=== PATIENT | male | born 1955 | race Caucasian/White ===

== ENCOUNTER 2016-10-08 12:21 | Emergency (ER) | payer MEDICAID ==
[2016-10-08] MEDS ORDERED: Sodium Chloride 0.9% 10 ML Syringe FLUSH PRN (12:56)
--- NOTE | 2016-10-08 13:18 | EDM.PDOC ---
ED HPI GENERAL MEDICAL PROBLEM - General Chief Complaint: Respiratory Problem Stated Complaint: RIB PAIN Time Seen by Provider: 10/08/16 12:47 Source of Information: Reports: Patient, Old Records (recent clinic visit and xray report) History Limitations: Reports: No Limitations - History of Present Illness INITIAL COMMENTS - FREE TEXT/NARRATIVE: 61-year-old male presents for evaluation and treatment of pain to the left ribs. Patient reports that he fell on Monday morning. States he was walking with his dog and he tripped and fell. He did not head nor lose consciousness. Reports pain initially in the left lateral, inferior ribs. He states that he went to the clinic on 10-03-16 and x-rays of the chest and left ribs are performed. No acute abnormalities. Healing rib fractures, from December, were present. Patient reports Monday the pain has moved more superiorly just underneath the left breast. He denies any syncope since the incident. Denies any nausea, vomiting or any headaches. He states he did not hit his head. He reports some lightheadedness. He states that the pain is worse with palpation. He states that it is hard to breathe due to the pain. He reports when he does take a deep breath his muscles seem to tighten. Patient was prescribed tramadol on Monday for the pain. He states that he does not feel as providing adequate pain relief. Patient is a current everyday smoker. Location: Reports: Chest Worsens with: Reports: Breathing, Other (palpation), Movement Left Pain Score (Numeric/FACES): 6 - Related Data Allergies Allergy/AdvReac Type Severity Reaction Status Date / Time No Known Allergies Allergy Verified 10/08/16 12:38 Home Meds: Home Meds Spironolactone [Aldactone] 100 mg PO BID 01/18/16 [History] Acetaminophen/oxyCODONE [Percocet 325-5 MG] 1 tab PO Q6H PRN #20 tablet [Rx] Furosemide [Furosemide] 40 mg PO DAILY 10/08/16 [History] amLODIPine [Norvasc] 10 mg PO DAILY 10/08/16 [History] Past Medical History - Past Health History Medical/Surgical History: Denies Medical/Surgical History Gastrointestinal History: Reports: Cirrhosis, GERD Musculoskeletal History: Reports: Other (See Below) Other Musculoskeletal History: broken ribs Social & Family History - Family History Family Medical History: Noncontributory - Tobacco Use Smoking Status *Q: Current Every Day Smoker Years of Tobacco use: 30 Packs/Tins Daily: 0.7 - Caffeine Use Caffeine Use: Reports: Coffee - Alcohol Use Days Per Week of Alcohol Use: 7 Number of Drinks Per Day: 5 Total Drinks Per Week: 35 - Recreational Drug Use Recreational Drug Use: No ED ROS GENERAL - Review of Systems Review Of Systems: See Below Respiratory: Reports: Shortness of Breath Cardiovascular: Reports: Chest Pain, Lightheadedness GI/Abdominal: Denies: Abdominal Pain, Nausea, Vomiting Skin: Reports: Bruising (elbows, hips and ribs) Neurological: Denies: Headache, Syncope ED EXAM, GENERAL - Physical Exam Exam: See Below Exam Limited By: No Limitations General Appearance: Alert, WD/WN, No Apparent Distress Eye Exam: Bilateral Eye: EOMI, PERRL Ears: Normal External Exam Nose: Normal Inspection Throat/Mouth: Normal Inspection, Normal Lips, Normal Voice, No Airway Compromise Head: Atraumatic, Normocephalic Neck: Normal Inspection, Supple, Non-Tender, Full Range of Motion Respiratory/Chest: No Respiratory Distress, Lungs Clear, Normal Breath Sounds, Splinting, Other (tenderness to palpation to ribs 5 and 6 in the anteriorlateral area) Cardiovascular: Normal Peripheral Pulses, Regular Rate, Rhythm, No Murmur GI/Abdominal: Normal Bowel Sounds, Soft, Non-Tender, Other (No LUQ tenderness) Neurological: Alert, Oriented, Normal Cognition Psychiatric: Normal Affect, Normal Mood Skin Exam: Warm, Dry, Normal Color. No: Ecchymosis (no ecchymosis to the chest appreiated ) EKG INTERPRETATION EKG Date: 10/08/16 Time: 14:15 Rhythm: NSR Rate (Beats/Min): 81 Reubens: Normal P-Wave: Present QRS: Normal ST-T: Normal QT: Normal EKG Interpretation Comments: NSR at 81 bpm. Q waves in II, III and AVF - old inferior wall OH. Reviewed by myself and Dr. Bajwa. Course - Vital Signs Last Recorded V/S: Last Vital Signs Temp 36.2 C 10/08/16 12:34 Pulse 99 10/08/16 12:34 Resp 20 10/08/16 12:34 BP 128/78 10/08/16 12:34 Pulse Ox 100 08/19/17 12:34 - Orders/Labs/Meds Labs: Laboratory Tests 10/08/16 10/08/16 10/08/16 Range/Units 13:08 13:08 13:08 WBC 13.24 H (4.23-9.07) K/mm3 RBC 4.99 (4.63-6.08) M/mm3 Hgb 15.9 (13.7-17.5) gm/L Hct 44.8 (40.1-51.0) % MCV 89.8 (79.0-92.2) fl MCH 31.9 (25.7-32.2) pg MCHC 35.5 (32.2-35.5) g/dl RDW Std Deviation 43.4 (35.1-43.9) fL Plt Count 220 (163-337) K/mm3 MPV 9.0 L (9.4-12.3) fl Neut % (Auto) 69.6 H (34.0-67.9) % Lymph % (Auto) 16.2 L (21.8-53.1) % Montgomery % (Auto) 11.9 (5.3-12.2) % Eos % (Auto) 1.4 (0.8-7.0) Baso % (Auto) 0.3 (0.1-1.2) % Neut # (Auto) 9.21 H (1.78-5.38) K/mm3 Lymph # (Auto) 2.15 (1.32-3.57) K/mm3 Montgomery # (Auto) 1.57 H (0.30-0.82) K/mm3 Eos # (Auto) 0.19 (0.04-0.54) K/mm3 Baso # (Auto) 0.04 (0.01-0.08) K/mm3 Manual Slide Review Normal smear PT (8.0-13.0) SECONDS INR APTT (22-36) SECONDS Sodium 131 L (136-145) mEq/L Potassium 5.0 (3.5-5.1) mEq/L Chloride 95 L (98-107) mEq/L Carbon Dioxide 25 (21-32) mEq/L Anion Gap 16.0 H (5-15) BUN 22 H (7-18) mg/dL Creatinine 1.7 H (0.7-1.3) mg/dL Est Cr Clr Drug Dosing 46.52 mL/min Estimated GFR (MDRD) 41 (>60) mL/min BUN/Creatinine Ratio 12.9 L (14-18) Glucose 125 H (80-115) mg/dL Calcium 10.3 H (8.5-10.1) mg/dL Total Bilirubin 0.5 (0.2-1.0) mg/dL AST 22 (15-37) U/L ALT 19 (16-63) U/L Alkaline Phosphatase 91 (46-116) U/L CK-MB (CK-2) 0.6 (0-3.6) ng/ml Troponin I 0.041 (0.00-0.056) ng/mL Total Protein 9.1 H (6.4-8.2) g/dl Albumin 4.5 (3.4-5.0) g/dl Globulin 4.6 gm/dL Albumin/Globulin Ratio 1.0 (1-2) / Range/Units 13:08 WBC (4.23-9.07) K/mm3 RBC (4.63-6.08) M/mm3 Hgb (13.7-17.5) gm/L Hct (40.1-51.0) % MCV (79.0-92.2) fl MCH (25.7-32.2) pg MCHC (32.2-35.5) g/dl RDW Std Deviation (35.1-43.9) fL Plt Count (163-337) K/mm3 MPV (9.4-12.3) fl Neut % (Auto) (34.0-67.9) % Lymph % (Auto) (21.8-53.1) % Montgomery % (Auto) (5.3-12.2) % Eos % (Auto) (0.8-7.0) Baso % (Auto) (0.1-1.2) % Neut # (Auto) (1.78-5.38) K/mm3 Lymph # (Auto) (1.32-3.57) K/mm3 Montgomery # (Auto) (0.30-0.82) K/mm3 Eos # (Auto) (0.04-0.54) K/mm3 Baso # (Auto) (0.01-0.08) K/mm3 Manual Slide Review PT 11.2 (8.0-13.0) SECONDS INR 1.03 APTT 30 (22-36) SECONDS Sodium (136-145) mEq/L Potassium (3.5-5.1) mEq/L Chloride (98-107) mEq/L Carbon Dioxide (21-32) mEq/L Anion Gap (5-15) BUN (7-18) mg/dL Creatinine (0.7-1.3) mg/dL Est Cr Clr Drug Dosing mL/min Estimated GFR (MDRD) (>60) mL/min BUN/Creatinine Ratio (14-18) Glucose (80-115) mg/dL Calcium (8.5-10.1) mg/dL Total Bilirubin (0.2-1.0) mg/dL AST (15-37) U/L ALT (16-63) U/L Alkaline Phosphatase (46-116) U/L CK-MB (CK-2) (0-3.6) ng/ml Troponin I (0.00-0.056) ng/mL Total Protein (6.4-8.2) g/dl Albumin (3.4-5.0) g/dl Globulin gm/dL Albumin/Globulin Ratio (1-2) Meds: Medications Discontinued Medications Generic Name Dose Route Start Last Admin Trade Name Freq PRN Reason Stop Dose Admin Iopamidol 80 ml 10/08/16 13:41 10/08/16 14:00 Isovue-300 (61%) IVPUSH 10/08/16 13:42 80 ml ONETIME ONE Administration Sodium Chloride 10 ml 10/08/16 12:56 10/08/16 14:24 Saline Flush FLUSH 10 ml ASDIRECTED PRN Administration Keep Vein Open - Radiology Interpretation Free Text/Narrative:: CT of the chest with IV contrast impression per [facility]: No acute process. Cirrhotic liver. - Re-Assessments/Exams Free Text/Narrative Re-Assessment/Exam: 10/08/16 12:55 Plan is to obtain a CT of the chest to rule out any new rib fractures or pneumos that were not appreciated on chest x-ray. Will also obtain an EKG and lab work. Offered medication for pain. Patient reports that he drove himself here and he would like to drive home. He declined narcotic pain medication at this time. 10/08/16 15:19 I reviewed the chest CT, ekg and labs with the patient. Informed of the hyponatremia. Reports he has had this before. Encouraged fluids such as powerade or gatorade and increasing salt consumption. Will discharge home, discharge instructions as documented. Departure - Departure Time of Disposition: 15:20 Disposition: Home, Self-Care 01 Condition: Fair Clinical Impression: Bruised rib Qualifiers: Encounter type: initial encounter Laterality: left Qualified Code(s): S20.212A - Contusion of left front wall of thorax, initial encounter - Discharge Information Prescriptions: Acetaminophen/oxyCODONE [Percocet 325-5 MG] 1 tab PO Q6H PRN #20 tablet PRN Reason: Pain Instructions: Rib Contusion Referrals: Elif Kramer, [employer] [facility]CHNICIAN [Primary Care Provider] - Forms: ED Department Discharge Additional Instructions: Take the Percocet as prescribed. 1-2 tabs every 4-6 hours as needed for pain. Do not drive or operate machinery within 12 hours of taking the Percocet. Percocet can be habit-forming, I recommend you take as few as needed to control your pain. May use heat or ice to sore area for additional symptom relief. Follow-up with your primary care provider this week for recheck of your symptoms. Please return to the ER if your symptoms change or worsen.
[2016-10-08] MEDS ORDERED: Iopamidol 612 MG/ML 100 ML Bottle IVPUSH ONE (13:41)
[2016-10-08 13:54] VITALS: BP 128/78
--- NOTE | 2016-10-10 08:27 | CT ---
CT chest Technique: Multiple axial sections were obtained from above the lung apices inferiorly through the lung bases. Intravenous contrast was utilized. Comparison: Previous chest x-ray of 10/03/16. Previous abdominal CT of 01/18/16. Findings: Slight nodular contour of the liver is seen. Liver also appears slightly smaller than on prior CT exam. Findings suggest the possibility of cirrhosis. Other portions of the upper abdominal structures are within normal limits. No pericardial thickening is seen. Coronary artery calcification is noted. Mediastinum and hilar regions show no adenopathy or mass. No axillary adenopathy is identified. Large calcified granuloma noted within the right mid lung measuring approximately 1.7 cm. Smaller calcified granuloma seen adjacent to the larger finding measuring about 4 mm. Mild emphysematous changes are present. Lungs otherwise are clear. Old partially healed left tenth rib fracture is noted. Fracture identified within the sixth rib. Uncertain if this is old or acute. Impression: 1. Possible cirrhotic liver. 2. Two calcified granulomas within the right mid chest. 3. Coronary artery calcification. Other incidental findings. 4. Old partially healed rib fracture within the left tenth rib. Nondisplaced sixth rib fracture, uncertain if this is acute or old. 5. No acute abnormality identified is otherwise seen on CT study of the chest. Diagnostic code #3 Mostly agree with preliminary report issued by [facility], with additional note of sixth rib fracture as noted above ([facility] preliminary report dictated on 10/08/16, 3:16 PM Central Time
== END 2016-10-08 15:35 | disposition home or self-care (01) ==
LOC: JD.ED 12:21
DX: S20.212A Contusion of left front wall of thorax, initial encounter (principal); K21.9 Gastro-esophageal reflux disease without esophagitis; F17.210 Nicotine dependence, cigarettes, uncomplicated; Z79.899 Other long term (current) drug therapy; W01.0XXA Fall on same level from slipping, tripping and stumbling without subsequent striking against object, initial encounter
CPT/HCPCS: 36415; 71260; 80053; 82553; 84484; 85025; 85610; 85730; 93005; 99284; J7050; Q9967; 99283

== ENCOUNTER 2020-09-07 12:22 | Emergency (ER) | payer MEDICAID, MEDICARE ==
[2020-09-07] MEDS ORDERED: LORazepam 2 MG/ML SDV IVPUSH ONE ×2 (12:31→14:01)
[2020-09-07] MEDS ORDERED: Thiamine 200 MG/2 ML MDV IVPUSH ONE (12:31)
--- NOTE | 2020-09-07 12:40 | EDM.PDOCBH ---
<Mo Snell - Last Filed: 09/07/20 22:06> ED HPI GENERAL MEDICAL PROBLEM - General Chief Complaint: Drug or Alcohol Abuse Stated Complaint: [facility] Time Seen by Provider: 09/07/20 12:30 - Related Data Allergies Allergy/AdvReac Type Severity Reaction Status Date / Time No Known Allergies Allergy Verified 09/07/20 12:29 Home Meds: Home Meds Spironolactone [Aldactone] 100 mg PO BID 01/18/16 [History] Acetaminophen/oxyCODONE [Percocet 325-5 MG] 1 tab PO Q6H PRN #20 tablet 10/08/16 [Rx] Furosemide 40 mg PO DAILY 10/08/16 [History] amLODIPine [Norvasc] 10 mg PO DAILY 10/08/16 [History] COURSE, BEHAVIORAL HEALTH COMP - Course Medical Clearance: 09/07/20 22:06 Notified that the patient is now up, ambulating, and sober enough to go home. His girlfriend is on her way to collect him. Departure - Departure Time of Disposition: 22:06 Disposition: Home, Self-Care 01 Condition: Good Clinical Impression: Alcohol intoxication - Discharge Information *PRESCRIPTION DRUG MONITORING PROGRAM REVIEWED*: Not Applicable *COPY OF PRESCRIPTION DRUG MONITORING REPORT IN PATIENT EFRAIN: Not Applicable Instructions: Alcohol Intoxication, [id number] Referrals: PCP,None [Primary Care Provider] - Forms: ED Department Discharge Additional Instructions: You were brought to the emergency room after being too weak and uncoordinated to walk, in the setting of chronically ingesting alcohol. Work-up in the ER included numerous blood tests, which found your alcohol level to be significantly elevated at 0.35, and your potassium to be low at 2.8. You were given IV potassium, along with IV fluid in the ER. We strongly recommended that you seek help in order to stop drinking alcohol, by presenting to [facility]: [address] [place] [phone] If any other problems, please do not hesitate to return to the ER. <Chao Vasquez - Last Filed: 09/08/20 07:20> ED HPI GENERAL MEDICAL PROBLEM - General Source of Information: Reports: Patient History Limitations: Reports: No Limitations - History of Present Illness INITIAL COMMENTS - FREE TEXT/NARRATIVE: 65-year-old male presents to the ED per [facility]. The history suggest that he drinks 5 to 6 glasses of black velvet whiskey on a daily basis throughout the day. There is no indication as to how large the glasses are. He states he has been doing this for many years. For the last 3 days he has been unable to sleep. This morning when he tried to get up he found that his balance was off and therefore he lowered himself to the floor and crawled to the bathroom on his hands and knees. Once he got there he was completely out of breath and so weak that he could not get up. He therefore summoned help and the paramedics came. Patient admits to 2 drinks within the last 12 hours. He denies any nausea or vomiting. He denies any hematemesis. It is unclear if he has a confirmed diagnosis of cirrhosis of the liver his current med list suggest that he has ascites as he is on Aldactone and Lasix. He states his stools are usually on the looser side without blood. He had a good meal yesterday. 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 He is alert oriented and answers all questions appropriately. He is minimally dysarthric. 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 He denies any recent falls.) Duration: Hour(s):, Constant Location: Reports: Generalized (Generalized weakness lysed weakness and feeling of being off balance.) Quality: Reports: Other (Generalized weakness with chronic problems with being off balance felt to be due to cerebellar ataxia.) Severity: Moderate Improves with: Reports: None Worsens with: Reports: None Context: Reports: Other (Take alcoholic.). Denies: Activity, Exercise, Lifting, Sick Contact, Trauma Associated Symptoms: Reports: Cough, cough w sputum (Walkers cough. Smokes a little over a pack per day.), Loss of Appetite, Malaise, Shortness of Breath, Weakness. Denies: Confusion, Chest Pain, Diaphoresis ( Brown sputum.), Fever/Chills, Headaches, Nausea/Vomiting, Rash, Seizure, Syncope (Eats solid food rarely.) Treatments [employer]PECTOR: Reports: Other (see below) (Neurolysed weakness denies taking any medications other than prescribed Aldactone and furosemide for cirrhosis.) Past Medical History - Past Health History Medical/Surgical History: Denies Medical/Surgical History Gastrointestinal History: Reports: Cirrhosis, GERD Musculoskeletal History: Reports: Other (See Below) Other Musculoskeletal History: broken ribs Social & Family History - Family History Family Medical History: No Pertinent Family History - Tobacco Use Tobacco Use Status *Q: Current Every Day Tobacco User Tobacco Use Within Last Twelve Months: Cigarettes Years of Tobacco use: 50 Packs/Tins Daily: 1 - Caffeine Use Caffeine Use: Reports: Coffee - Recreational Drug Use Recreational Drug Use: No ED ROS GENERAL - Review of Systems Review Of Systems: See Below (Clearly lobar pack per day) Constitutional: Reports: Malaise, Weakness, Fatigue, Decreased Appetite, Weight Loss. Denies: Fever, Chills HEENT: Reports: Glasses Respiratory: Reports: Shortness of Breath (Reading only.), Wheezing, Cough, Sputum (Worse in the mornings due to smoking.). Denies: Pleuritic Chest Pain, Hemoptysis ( Brown usually in color) Cardiovascular: Reports: Dyspnea on Exertion. Denies: Chest Pain, Blood Pressure Problem, Claudication, Edema, Lightheadedness, Orthopnea Endocrine: Reports: Fatigue GI/Abdominal: Reports: Diarrhea (Tend to be on the looser side and semiformed), Decreased Appetite (And eat regularly. Maybe once a day or less.) : Reports: Frequency, Other Musculoskeletal: Reports: Neck Pain (Teary at x2 or 3.), Shoulder Pain, Back Pain, Joint Pain Skin: Reports: Bruising (She said he bruises a little easier than normal.) Neurological: Reports: Dizziness, Difficulty Walking (Neurolysed weakness), Weakness, Gait Disturbance (Chronic but getting worse.). Denies: Confusion, Headache, Numbness (And when he gets up in the morning.), Pre-Existing Deficit, Syncope, Tingling, Tremors, Trouble Speaking ( due to cerebellar ataxia.), Change in Speech Psychiatric: Reports: Other (Chronic alcoholism.). Denies: Agitation Hematologic/Lymphatic: Reports: Easy Bruising Immunologic: Reports: No Symptoms ED EXAM, BEHAVIORAL HEALTH - Physical Exam Exam: See Below Exam Limited By: Intoxication General Appearance: Alert, Anxious, Mild Distress, Other (Breath smells strongly of alcohol. Vital signs show temperature of 36.4. Heart rate 100 and sinus respiratory this 20 with O2 sats of 95% room air. BP 134/89.) Eye Exam: Bilateral Eye: Normal Inspection (Mild scleral icterus. No blepharal pallor.), Nystagmus (Sustained nystagmus on lateral gaze bilaterally.), PERRL (No gaze palsy) Throat/Mouth: Other (Tongue is very dry and coated.). No: Normal Oropharynx Head: Atraumatic, Normocephalic, Other (No outward signs of any head or facial trauma.) Neck: Limited Range of Motion, Tender Lateral (Worse than normal.) Respiratory/Chest: Chest Non-Tender, Decreased Breath Sounds (Decreased breath sounds to the lower 20% lung lainez bilaterally.), Rhonchi (Expiratory wheezes), Wheezing. No: Lungs Clear, Normal Breath Sounds, Rales ( scattered rhonchi upper lungs.) Cardiovascular: Regular Rate, Rhythm, No Edema, No Gallop, No Murmur, No Rub. No: Normal Peripheral Pulses GI/Abdominal: Normal Bowel Sounds, Soft, No Distention, No Abnormal Bruit, No Mass, Hepatomegaly, Splenomegaly (Liver is palpable 2 fingerbreadths below the right costal margin. I believe I can feel the tip of his spleen as well left lateral), Other (No evidence of ascites clinically.). No: Distended ( costal margin.) Back Exam: Normal Inspection, Full Range of Motion. No: CVA Tenderness (L), CVA Tenderness (R) Extremities: Normal Inspection, Normal Range of Motion, Non-Tender, No Pedal Edema, Other (Erythema on either knee indicating he did not crawl for very far.) Neurological: Alert, Normal Mood/Affect, CN II-XII Intact, Normal Cognition, Oriented x 3. No: Normal Reflexes Psychiatric: Alert, Normal Affect, Normal Cognition, Normal Mood, Oriented Skin Exam: Warm, Dry, Intact, Normal color, No rash COURSE, BEHAVIORAL HEALTH COMP - Course Vital Signs: Last Vital Signs Temp 36.4 C 09/07/20 12:24 Pulse 92 09/07/20 22:00 Resp 20 09/07/20 22:00 BP 159/94 H 09/07/20 22:00 Pulse Ox 94 L 09/07/20 22:00 Orders, Labs, Meds: Laboratory Tests 09/07/20 09/07/20 09/07/20 Range/Units 12:46 12:46 12:46 WBC 3.17 L (4.23-9.07) K/mm3 RBC 3.59 L (4.63-6.08) M/mm3 Hgb 13.2 L D (13.7-17.5) gm/dl Hct 37.3 L (40.1-51.0) % MCV 103.9 H D (79.0-92.2) fl MCH 36.8 H (25.7-32.2) pg MCHC 35.4 (32.2-35.5) g/dl RDW Std Deviation 51.9 H (35.1-43.9) fL Plt Count 163 (163-337) K/mm3 MPV 8.6 L (9.4-12.3) fl Neut % (Auto) 50.8 (34.0-67.9) % Lymph % (Auto) 29.0 (21.8-53.1) % Adair % (Auto) 17.0 H (5.3-12.2) % Eos % (Auto) 1.6 (0.8-7.0) Baso % (Auto) 1.3 H (0.1-1.2) % Neut # (Auto) 1.61 L (1.78-5.38) K/mm3 Lymph # (Auto) 0.92 L (1.32-3.57) K/mm3 Adair # (Auto) 0.54 (0.30-0.82) K/mm3 Eos # (Auto) 0.05 (0.04-0.54) K/mm3 Baso # (Auto) 0.04 (0.01-0.08) K/mm3 Manual Slide Review Not Reportable PT 11.5 (9.7-12.0) SECONDS INR 1.08 APTT 31.3 (21.7-31.4) SECONDS Sodium 137 (136-145) mEq/L Potassium 2.8 L D (3.5-5.1) mEq/L Chloride 96 L (98-107) mEq/L Carbon Dioxide 30 (21-32) mEq/L Anion Gap 13.8 (5-15) BUN 5 L (7-18) mg/dL Creatinine 0.9 (0.7-1.3) mg/dL Est Cr Clr Drug Dosing 72.52 mL/min Estimated GFR (MDRD) > 60 (>60) mL/min BUN/Creatinine Ratio 5.6 L (14-18) Glucose 93 (70-99) mg/dL Serum Osmolality 370 H (280-300) mosm/kg Calcium 8.7 D (8.5-10.1) mg/dL Magnesium 1.6 L (1.8-2.4) mg/dL Total Bilirubin 0.7 (0.2-1.0) mg/dL GGT 1214 H (15-85) U/L AST 171 H (15-37) U/L ALT 52 (16-63) U/L Alkaline Phosphatase 110 (46-116) U/L Troponin I 0.022 (0.00-0.056) ng/mL NT-Pro-B Natriuret Pep (0-125) pg/mL Total Protein 8.0 (6.4-8.2) g/dl Albumin 3.7 (3.4-5.0) g/dl Globulin 4.3 gm/dL Albumin/Globulin Ratio 0.9 L (1-2) Lipase 131 (73-393) U/L Ethyl Alcohol 0.35 (0.00) gm% 09/07/20 Range/Units 12:46 WBC (4.23-9.07) K/mm3 RBC (4.63-6.08) M/mm3 Hgb (13.7-17.5) gm/dl Hct (40.1-51.0) % MCV (79.0-92.2) fl MCH (25.7-32.2) pg MCHC (32.2-35.5) g/dl RDW Std Deviation (35.1-43.9) fL Plt Count (163-337) K/mm3 MPV (9.4-12.3) fl Neut % (Auto) (34.0-67.9) % Lymph % (Auto) (21.8-53.1) % Adair % (Auto) (5.3-12.2) % Eos % (Auto) (0.8-7.0) Baso % (Auto) (0.1-1.2) % Neut # (Auto) (1.78-5.38) K/mm3 Lymph # (Auto) (1.32-3.57) K/mm3 Adair # (Auto) (0.30-0.82) K/mm3 Eos # (Auto) (0.04-0.54) K/mm3 Baso # (Auto) (0.01-0.08) K/mm3 Manual Slide Review PT (9.7-12.0) SECONDS INR APTT (21.7-31.4) SECONDS Sodium (136-145) mEq/L Potassium (3.5-5.1) mEq/L Chloride (98-107) mEq/L Carbon Dioxide (21-32) mEq/L Anion Gap (5-15) BUN (7-18) mg/dL Creatinine (0.7-1.3) mg/dL Est Cr Clr Drug Dosing mL/min Estimated GFR (MDRD) (>60) mL/min BUN/Creatinine Ratio (14-18) Glucose (70-99) mg/dL Serum Osmolality (280-300) mosm/kg Calcium (8.5-10.1) mg/dL Magnesium (1.8-2.4) mg/dL Total Bilirubin (0.2-1.0) mg/dL GGT (15-85) U/L AST (15-37) U/L ALT (16-63) U/L Alkaline Phosphatase (46-116) U/L Troponin I (0.00-0.056) ng/mL NT-Pro-B Natriuret Pep 301 H (0-125) pg/mL Total Protein (6.4-8.2) g/dl Albumin (3.4-5.0) g/dl Globulin gm/dL Albumin/Globulin Ratio (1-2) Lipase (73-393) U/L Ethyl Alcohol (0.00) gm% Medications Discontinued Medications Generic Name Dose Route Start Last Admin Trade Name Freq PRN Reason Stop Dose Admin Haloperidol Lactate 2.5 mg 09/07/20 14:01 09/07/20 14:09 Haloperidol Lactate 5 Mg/Ml Sdv IVPUSH 09/07/20 14:02 2.5 mg ONETIME ONE Administration Dextrose/Lactated Ringer's 1,000 mls @ 250 mls/hr 09/07/20 12:45 09/07/20 12:43 Dextrose 5%-Lactated Ringers IV 250 mls/hr ASDIRECTED RONNI Administration Potassium Chloride 10 meq/ 100 mls @ 100 mls/hr 09/07/20 14:15 09/07/20 18:20 Premix IV 09/07/20 18:14 100 mls/hr Q1H RONNI Administration Dextrose/Sodium Chloride 1,000 mls @ 200 mls/hr 09/07/20 17:15 09/07/20 17:15 Dextrose 5%-1/2 Ns IV 200 mls/hr ASDIRECTED RONNI Administration Lorazepam 1 mg 09/07/20 12:31 09/07/20 12:43 Lorazepam 2 Mg/Ml Sdv IVPUSH 09/07/20 12:32 1 mg ONETIME ONE Administration Lorazepam 1 mg 09/07/20 14:01 09/07/20 14:09 Lorazepam 2 Mg/Ml Sdv IVPUSH 09/07/20 14:02 1 mg ONETIME ONE Administration Thiamine HCl 100 mg 09/07/20 12:31 09/07/20 12:44 Thiamine 200 Mg/2 Ml Mdv IVPUSH 09/07/20 12:32 100 mg ONETIME ONE Administration Re-Assessment/Re-Exam: 65-year-old male arrives in the ED per [facility] after he summoned them. When he got out of bed this morning he found he was so offkilter and dizzy but he did not walk. He lowered himself to the floor and crawled to the bathroom on his hands and knees. However once he got there he was out of breath and very weak and lightheaded and could not get himself up. He therefore summoned the ambulance. Patient has a history of chronic alcoholism with use of estimated 500 mils of black velvet whiskey on a daily basis. He claims he takes 5-6 drinks daily. He smokes a pack to pack and half cigarettes of daily. He arrives in the ED intoxicated. He has no obvious trauma or injuries. He states that he is not slept for the last 3 nights. Plan IV D5 Ringer's lactate at 250 mils per hour. Given thiamine 100 mg IV with Ativan 1 mg IV. Routine labs to be performed including blood alcohol level. Clinically he has cirrhosis of the liver. Re-Assessment/Re-Exam Date: 09/07/20 (!4:00 patient continues to try and crawl out of bed and he cannot walk and fall risk is extremely high. He has received 1 mg of Ativan with no effect. We will repeat Ativan 1 mg IV with Haldol 2.5 mg IV for his safety to stay in bed until blood alcohol level comes down.) Re-Assessment/Re-Exam Time: 14:05 (Total white count is low at 3.17 combined with chronic alcoholism. The differential shows 58.8% neutrophils and 29% lymphocytes. Hemoglobin is 13.2 with hematocrit of 37.3. MCV is 103.9 again combined with chronic alcohol use. Platelet count is low normal at 163,000. PT is 11.5 with an INR of 1.08 and a PTT of 31.3. Sodium is 137 with potassium of 2.8. Chloride is 96 with a bicarb of 30. Anion gap is 13.8. BUN is 5 with a creatinine of 0.9. GFR is greater than 60. Glucose is 93. Serum osmolality is pending. Calcium is 8.7 magnesium is slightly low at 1.6. Bilirubin is 0.7 GGT elevated at 1214 AST elevated 171 and ALT of 52. Alkaline phosphatase is 110. The elevated GGT appears to be secondary to cirrhosis of the liver. Troponin I is 0.022. Total protein 8.0 with an albumin fraction of 3.7. Lipase is 131. Blood alcohol is currently 0.35 g%) Medical Clearance: 09/07/20 14:06 patient will be given for K riders of potassium to improve his potassium status to be greater than 3.0. 09/07/20 14:47 since reported to me that within 10 minutes of receiving the 1 mg of Ativan and 2.5 mg of Haldol the patient crawled out of bed over both of his railings and was found lying on the floor. He was dated back to bed and clinically does not show any signs of significant injuries. 09/07/20 22:00: Patient woke up and is able to navigate fairly well in the hallway. He is sober enough to go home and his girlfriend will be coming to pick him up. Discharged home in her care. Sepsis Event Note (ED) - Evaluation Sepsis Screening Result: No Definite Risk - Focused Exam Vital Signs: Vital Signs Pulse Resp BP Pulse Ox 09/07/20 22:00 92 20 159/94 H 94 L
[2020-09-07] MEDS ORDERED: Dextrose 5%-Lactated Ringers 1,000 ML IV SCH (12:45)
[2020-09-07] MEDS ORDERED: Haloperidol Lactate 5 MG/ML SDV IVPUSH ONE (14:01)
[2020-09-07] MEDS: Potassium Chloride 10 MEQ in Premix Bag 1 BAG IV SCH ×4 (14:40→18:20)
[2020-09-07] MEDS ORDERED: Dextrose 5%-0.45% NaCl 1,000 ML IV SCH (17:15)
[2020-09-08 00:04] VITALS: BP 159/94; PULSE 92
== END 2020-09-07 22:30 | disposition home or self-care (01) ==
LOC: JD.ED 12:22
DX: F10.129 Alcohol abuse with intoxication, unspecified (principal); Z72.0 Tobacco use; Y90.5 Blood alcohol level of 100-119 mg/100 ml; Z79.899 Other long term (current) drug therapy; R06.02 Shortness of breath
CPT/HCPCS: 36415; 80053; 80307; 82977; 83690; 83735; 83880; 83930; 84484; 85025; 85610; 85730; 96365; 96366; 96375; 96376; 99284; J1630; J2060; J3411; J3480; J7042; J7121